=== PATIENT | female | born 1960 | race Hispanic/Latino ===

== ENCOUNTER 2019-06-16 05:57 | Inpatient (IN) | payer BC ==
[2019-06-12 10:02] LABS: BASOPHILS % (AUTO) 0.4 % (0.0-5.0); EOSINOPHILS % (AUTO) 2.5 % (0.0-8.0); LYMPHOCYTES % (AUTO) 28.2 % (21.0-51.0); MEAN CORPUSCULAR HEMOGLOBIN 26.9 pg (27.0-33.0); MEAN CORPUSCULAR HGB CONC 30.7 g/dL (32.0-36.0); MEAN CORPUSCULAR VOLUME 87.6 fL (79-99); MONOCYTES % (AUTO) 5.8 % (3.0-13.0); NEUTROPHILS % (AUTO) 62.7 % (40.0-77.0); PLATELET COUNT (AUTO) 350 K/uL (130-400); RED BLOOD CELL COUNT(AUTO) 4.68 MIL/uL (4.00-5.50); RED CELL DISTRIBUTION WIDTH 13.9 % (11.0-15.5); WHITE BLOOD COUNT (AUTO) 5.2 K/uL (4.8-10.8)
[2019-06-12 10:05] VITALS: BP 125/87
[2019-06-12 10:06] LABS: APPEARANCE,URINE Clear (CLEAR); BILIRUBIN,URINE Negative (NEGATIVE); COLOR,URINE Yellow (YELLOW); GLUCOSE, URINE (UA) Negative (NEGATIVE); KETONES,URINE Negative (NEGATIVE); LEUKOCYTE ESTERASE ,URINE Small (NEGATIVE); NITRATE,URINE Negative (NEGATIVE); OCCULT BLOOD,URINE Negative (NEGATIVE); PROTEIN,URINE Negative (NEGATIVE)
[2019-06-12 10:07] LABS: CREATININE 0.9 mg/dL (0.5-1.5); POTASSIUM 4.5 mmol/L (3.5-5.1)
[2019-06-12 10:10] LABS: INR 1.65 (0.85-1.15); PARTIAL THROMBOPLASTIN TIME 30.3 SEC (26.3-35.5)
[2019-06-12 10:30] LABS: RBC,URINE 0-1 /HPF (0-1)
[2019-06-12 10:33] LABS: BACTERIA,URINE Few /HPF (None Seen)
--- NOTE | 2019-06-15 12:19 | NUR ---
LABS PT/ INR REPORTED TO DR. BRINK, MESSAGE LEFT WITH KODAK. PENDING FURTHER ORDERS
--- NOTE | 2019-06-15 14:03 | NUR ---
LABS RECEIVED CALL BACK PER DR. BRINK NO FURTHER ORDERS ON PT/ INR LEVELS REPORTED
[~2019-06-16] VITALS: Ht 157.5 cm; Wt 78.7 kg
[2019-06-16] VITALS (16 sets, daily range): BP systolic 101–127; BP diastolic 66–89
[~2019-06-16 05:57] MED LIST: METF-444 PO; ROSU20TA31 PO; SODIUM CHLORIDE 0.9% 500ML 500 ML IV SCH; WARF-57 PO
[2019-06-16] MEDS ORDERED: SODIUM CHLORIDE 0.9% 1000ML 1,000 ML IV ONE (06:28)
[2019-06-16] MEDS ORDERED: HEPARIN SODIUM 1000UNIT/ML 10ML VIAL ONE (07:10)
[2019-06-16] MEDS ORDERED: NITROGLYCERIN 2 MG/VIAL VIAL IV ONE (07:11)
[2019-06-16] MEDS ORDERED: IOHEXOL 350 MG/ML 100ML INFUS..BTL IV ONE (07:11)
[2019-06-16] MEDS ORDERED: LIDOCAINE HCL 2% 20ML ONE (07:11)
[2019-06-16] MEDS ORDERED: NICARDIPINE HCL 25 MG/10 ML ML IV ONE (07:17)
[2019-06-16] MEDS ORDERED: FENTANYL CITRATE PF 50 MCG/1 ML 2ML VIAL ONE (07:41)
[2019-06-16] MEDS ORDERED: MIDAZOLAM HCL 1 MG/ML 2ML VIAL ONE (07:41)
--- NOTE | 2019-06-16 08:20 | NUR ---
PT CAME BACK FROM WEAVING LOOM OPERATOR TSF BY BED. TR BAND WITH 13 ML DRESSING IS CLEAN AND DRY RADIAL PULSES PRESENT BILATERALLY.
[2019-06-16] MEDS ORDERED: CEFAZOLIN SODIUM 1 GM VIAL IVP PRN (08:30)
--- NOTE | 2019-06-16 09:27 | NUR ---
DR. SINGLETARY CAME TO SPEAK TO PATIENT AND FAMILY AT BEDSIDE.
[2019-06-16 10:57] LABS: HEMATOCRIT 33.3 % (36-48); MEAN CORPUSCULAR HEMOGLOBIN 27.5 pg (27.0-33.0); MEAN CORPUSCULAR HGB CONC 32.1 g/dL (32.0-36.0); MEAN CORPUSCULAR VOLUME 85.6 fL (79-99); PLATELET COUNT (AUTO) 237 K/uL (130-400); RED BLOOD CELL COUNT(AUTO) 3.89 MIL/uL (4.00-5.50); RED CELL DISTRIBUTION WIDTH 14.6 % (11.0-15.5); WHITE BLOOD COUNT (AUTO) 4.9 K/uL (4.8-10.8)
--- NOTE | 2019-06-16 11:00 | NUR ---
TR BAND REMOVED NO COMPLICATIONS, V/S STABLE DRESSING DRY AND INTACT.
[2019-06-16 11:06] LABS: HEMOGLOBIN A1C 6.3 % (4.0-6.0)
[2019-06-16 11:09] LABS: CREATININE 0.8 mg/dL (0.5-1.5)
[2019-06-16] MEDS ORDERED: MANNITOL 25% 50ML VIAL IV ONE (11:48)
[2019-06-16] MEDS ORDERED: HEPARIN SODIUM 1000UNIT/ML 10ML VIAL IV ONE (11:48)
[2019-06-16] MEDS ORDERED: SODIUM BICARB 8.4% 50ML SYRINGE IVP ONE (11:48)
[2019-06-16] MEDS ORDERED: ALBUMIN (HUMAN) 25% 50 ML IV ONE (11:48)
[2019-06-16] MEDS ORDERED: PHENYLEPHRINE HCL 10 MG/ML 1ML VIAL IV ONE (11:48)
[2019-06-16] MEDS ORDERED: AMINOCAPROIC ACID 250 MG/ML 20 ML VIAL IV ONE (11:48)
[2019-06-16] MEDS ORDERED: CALCIUM CHLORIDE 100 MG/ML 10 ML SYG IVP ONE (11:48)
[2019-06-16] MEDS ORDERED: MAGNESIUM SULFATE 1 GM/2 ML VIAL IM ONE (11:48)
[2019-06-16 11:54] LABS: INR 1.15 (0.85-1.15)
[2019-06-16 12:08] LABS: B-TYPE NATRIURETIC PEPTIDE 360 pg/mL (0-100)
--- NOTE | 2019-06-16 14:00 | NUR ---
GAVE REPORT TO BOB GAVIN RN AT BEDSIDE.
[2019-06-16] MEDS ORDERED: ACETAMINOPHEN 325 MG TAB PO PRN ×2 (15:15→16:45)
[2019-06-16] MEDS ORDERED: POTASSIUM CHLORIDE 10% ELIXIR 20 MEQ/15 ML UDCUP PO PRN (16:45)
[2019-06-16] MEDS ORDERED: ACETAMINOPHEN-CODEINE 300/30MG TAB PO PRN (16:45)
[2019-06-16] MEDS ORDERED: LACTULOSE 20 GM/30 ML UDCUP PO PRN (16:45)
[2019-06-16] MEDS ORDERED: GLUCAGON 1MG KIT 1 MG ML IM PRN (16:45)
[2019-06-16] MEDS ORDERED: DEXTROSE 50%-WATER 50 ML DISP.SYRIN IV PRN (16:45)
[2019-06-16] MEDS ORDERED: POTASSIUM CHLORIDE 20 MEQ ERTAB PO PRN (16:45)
[2019-06-16] MEDS ORDERED: HYDRALAZINE HCL 20 MG/ML VIAL IV PRN (16:45)
[2019-06-16] MEDS ORDERED: POTASSIUM CHLORIDE 10MEQ/100ML 100 ML IV PRN (16:45)
[2019-06-16] MEDS ORDERED: LIDOCAINE HCL-MPF 1% 2ML VIAL IV PRN (16:45)
[2019-06-16] MEDS ORDERED: ONDANSETRON HCL 4 MG/2 ML VIAL IVP PRN (16:45)
--- NOTE | 2019-06-16 17:00 | NUR ---
GAVE REPORT TO DRE REYNOSO RN , NO CONCERNS VOICED
--- NOTE | 2019-06-16 17:15 | NUR ---
RECEIVED TO ROOM 201 VIA W/C ACCOMPANIED BY PAUL RN. PT. AAOX3, RESP.'S EVEN AND UNLABORED. DENIES ANY C/O SOB, DENIES ANY CURRENT PAIN. RIGHT WRIST WITH LIGHT DRSG IN PLACE, D/I; DENIES ANY C/O NUMBNESS OR TINGLING TO DIGITS, GOOD CMS. ORIENTED TO ROOM AND SURROUNDINGS. CALL LIGHT WITHIN REACH.
[2019-06-16] MEDS: FAMOTIDINE/PF 20 MG/2 ML VIAL IV SCH (20:18)
[2019-06-16] MEDS: INSULIN HUMULIN R 100 UNIT/ML 3ML SQ SCH (21:00)
[2019-06-17] VITALS (20 sets, daily range): BP systolic 80–128; BP diastolic 46–88
[2019-06-17 03:54] LABS: HEMATOCRIT 34.6 % (36-48); MEAN CORPUSCULAR HEMOGLOBIN 27.1 pg (27.0-33.0); MEAN CORPUSCULAR HGB CONC 32.1 g/dL (32.0-36.0); MEAN CORPUSCULAR VOLUME 84.6 fL (79-99); PLATELET COUNT (AUTO) 224 K/uL (130-400); RED BLOOD CELL COUNT(AUTO) 4.09 MIL/uL (4.00-5.50); RED CELL DISTRIBUTION WIDTH 14.4 % (11.0-15.5); WHITE BLOOD COUNT (AUTO) 3.6 K/uL (4.8-10.8)
[2019-06-17 04:06] LABS: CREATININE 0.8 mg/dL (0.5-1.5); MAGNESIUM 1.8 mg/dL (1.80-2.40); PHOSPHORUS 3.6 mg/dL (2.5-4.9)
[2019-06-17] MEDS: INSULIN HUMULIN R 100 UNIT/ML 3ML SQ SCH ×2 (05:21→11:30)
[2019-06-17] MEDS: FAMOTIDINE/PF 20 MG/2 ML VIAL IV SCH ×2 (09:45→21:00)
[2019-06-17] MEDS ORDERED: NOREPINEPHRINE BITARTRATE 8 MG in DEXTROSE 5%-WATER 250 ML IV PRN (10:00)
[2019-06-17] MEDS ORDERED: AMINOCAPROIC ACID 15,000 MG in SODIUM CHLORIDE 0.9% 500ML 500 ML IV PRN (10:00)
[2019-06-17] MEDS ORDERED: EPINEPHRINE 10 MG in SODIUM CHLORIDE 0.9% 250 ML IV PRN (10:00)
[2019-06-17] MEDS ORDERED: ROPIVACAINE 0.2% 2MG/ML 100ML VIAL IJ ONE (13:48)
[2019-06-17] MEDS ORDERED: SODIUM CHLORIDE 0.9% 1000ML 1,000 ML IV ONE (14:04)
--- NOTE | 2019-06-17 14:14 | NUR ---
DC PLAN VISITED WITH PATIENT. PATIENT LIVES ALONE. INDEPENDENT ABLE TO PERFORM ADL'S. PATIENT HAS NO SERVICES OR DME'S. FEELS SAFE TO RETURN HOME. Addendum: 06/17/19 at 1416 by GILMAR JOSHI RN CM Amended: Links added.
[2019-06-17] MEDS ORDERED: OCTYL 2-CYANOACRYLATE 1 EACH TP ONE (14:33)
[2019-06-17] MEDS ORDERED: NITROGLYCERIN 50 MG/D5% WATER 1 BOT ONE (14:33)
[2019-06-17] MEDS ORDERED: CEFAZOLIN SODIUM 1 GM VIAL ONE (14:33)
[2019-06-17] MEDS: IPRATROPIUM/ALBUTEROL SULFATE 3 ML SOLUTION IH PRN (15:19)
[2019-06-17] MEDS ORDERED: NOREPINEPHRINE BITARTRATE 1 MG/1 ML ML IV ONE (15:57)
[2019-06-17] MEDS ORDERED: AMINOCAPROIC ACID 250 MG/ML 20 ML VIAL IV ONE (15:57)
[2019-06-17] MEDS ORDERED: ESMOLOL HCL 10 MG/ML 10 ML VIAL ONE ×2 (15:57→19:14)
[2019-06-17] MEDS ORDERED: MIDAZOLAM HCL 1 MG/ML 2ML VIAL ONE (15:57)
[2019-06-17] MEDS ORDERED: PROPOFOL 10 MG/ML 20ML VIAL IV ONE (15:57)
[2019-06-17] MEDS ORDERED: PROTAMINE SULFATE 10 MG/ML 25ML VIAL IV ONE (15:57)
[2019-06-17] MEDS ORDERED: SODIUM BICARB 50MEQ 50ML VIAL ONE (15:57)
[2019-06-17] MEDS ORDERED: LIDOCAINE PF 2% 5ML ABBOJECT ONE (15:57)
[2019-06-17] MEDS ORDERED: HEPARIN SODIUM 1000UNIT/ML 10ML VIAL ONE (15:57)
[2019-06-17] MEDS ORDERED: EPINEPHRINE 1 MG/ML AMPULE ONE (15:57)
[2019-06-17] MEDS ORDERED: ROCURONIUM 10MG/1ML SYR 10 MG/ML ML ONE (15:58)
[2019-06-17] MEDS ORDERED: SUFENTANIL CITRATE 50 MCG/ML 1ML AMP ONE ×2 (15:59→19:15)
[2019-06-17] MEDS ORDERED: KETAMINE 50MG/ML SYRINGE 50 MG/ML DISP.SYRIN IV ONE (16:00)
[2019-06-17] MEDS ORDERED: DELNIDO FORMULA 1 BAG IV ONE (16:12)
[2019-06-17 16:45] LABS: ABG HCO3 18.6 mmol/L (21.0-28.0); ABG OXYGEN SATURATION 99.3 % (95.0-99.0); ABG PCO2 33 mmHg (32-45)
[2019-06-17] MEDS ORDERED: ROPIVACAINE 0.5% 5MG/ML 30ML IJ ONE (17:17)
[2019-06-17] MEDS ORDERED: AMIODARONE HCL 50 MG/ML 3 ML VIAL ONE (17:42)
[2019-06-17] MEDS ORDERED: VASOPRESSIN 20 UNITS/ML 1ML VIAL ONE (17:47)
[2019-06-17] MEDS ORDERED: SODIUM CHLORIDE 0.9% 500ML 500 ML IV SCH (17:56)
[2019-06-17] MEDS ORDERED: AMINOCAPROIC ACID 15,000 MG in SODIUM CHLORIDE 0.9% 250 ML IV SCH (18:00)
[2019-06-17] MEDS ORDERED: NITROGLYCERIN 50 MG/D5% WATER 250 BOT IV SCH (18:00)
[2019-06-17] MEDS ORDERED: ACETAMINOPHEN 325 MG TAB PO PRN (18:00)
[2019-06-17] MEDS ORDERED: NOREPINEPHRINE 4MG/NS 250ML 250 ML IV PRN (18:00)
[2019-06-17] MEDS ORDERED: SODIUM CHLORIDE 0.9% 250 ML IV PRN (18:00)
[2019-06-17] MEDS ORDERED: ACETAMINOPHEN 650 MG SUPPOSITORY RC PRN (18:00)
[2019-06-17] MEDS ORDERED: MORPHINE SULFATE 4 MG/1ML SYG IV PRN (18:00)
[2019-06-17] MEDS ORDERED: SODIUM CHLORIDE 0.9% 1000ML 1,000 ML IV SCH (18:00)
[2019-06-17] MEDS ORDERED: GLUCAGON 1MG KIT 1 MG ML IM PRN (18:00)
[2019-06-17] MEDS ORDERED: DEXTROSE 50%-WATER 50 ML DISP.SYRIN IV PRN (18:00)
[2019-06-17] MEDS ORDERED: SODIUM CHLORIDE 0.9% 10 ML VIAL IVP PRN (18:00)
[2019-06-17] MEDS ORDERED: MORPHINE SULFATE 2 MG/ML 1ML SYG IV PRN (18:00)
[2019-06-17] MEDS ORDERED: PROPOFOL 1000 MG/100 ML 100 ML IV PRN (18:00)
[2019-06-17] MEDS ORDERED: EPINEPHRINE 10 MG in DEXTROSE 5%-WATER 250 ML IV PRN (18:00)
[2019-06-17] MEDS ORDERED: POTASSIUM PHOS 15 mMOL+NS250ML 250 ML IV PRN (18:00)
[2019-06-17] MEDS ORDERED: TRAMADOL HCL 50 MG TABLET PO PRN (18:00)
[2019-06-17 18:08] LABS: ABG BASE EXCESS -3.4 mmol/L (-2.0-3.0); ABG HCO3 20.2 mmol/L (21.0-28.0); ABG OXYGEN SATURATION 98.5 % (95.0-99.0); ABG PCO2 29 mmHg (32-45)
[2019-06-17 18:33] LABS: ABG BASE EXCESS -5.3 mmol/L (-2.0-3.0); ABG HCO3 17.8 mmol/L (21.0-28.0); ABG OXYGEN SATURATION 98.8 % (95.0-99.0); ABG PCO2 26 mmHg (32-45)
[2019-06-17] MEDS ORDERED: MILRINONE-D5W 20 MG/100 ML 100 ML IV ONE (18:38)
[2019-06-17] MEDS ORDERED: PROTAMINE SULFATE 10 MG/ML 5 ML VIAL ONE (18:48)
[2019-06-17 18:50] LABS: ABG BASE EXCESS 1.2 mmol/L (-2.0-3.0); ABG HCO3 23.7 mmol/L (21.0-28.0); ABG OXYGEN SATURATION 98.8 % (95.0-99.0); ABG PCO2 29 mmHg (32-45)
[2019-06-17] MEDS ORDERED: FAMOTIDINE/PF 20 MG/2 ML VIAL IV ONE (19:14)
[2019-06-17] MEDS ORDERED: Q-PUMP 1 EACH IRRIG SCH (19:15)
[2019-06-17 19:28] LABS: ABG BASE EXCESS -4.8 mmol/L (-2.0-3.0); ABG HCO3 20.8 mmol/L (21.0-28.0); ABG OXYGEN SATURATION 98.2 % (95.0-99.0); ABG PCO2 40 mmHg (32-45)
--- NOTE | 2019-06-17 20:00 | NUR ---
CVR PT RECEIVED FROM OR AT THIS TIME. PT SEDATED PLACED ON MECHANICAL VENTILATION VIA ET TUBE 7.0 TAPPED AT APPROXIMATELY 21CM LIP VENT SETTINGS SIMV RATE 12, VT 500, PEEP 5, PS 10 FIO2 60%. CLEAR BREATH SOUNDS AUSCULTATED TO LEFT LUNG BERUMEN AND CRACKLES TO LEFT LUNG BERUMEN. OG TUBE NOTED PLACEMENT ASSESSED AND CONFIRMED WITH AIR BOLUS THEN PLACED ON LIWS DRAINAGE CLEAR IN COLOR. RIJ CORDIS INFUSING WELL. RIGHT CHEST INCISION DRESSING DRY AND INTACT. CHEST TUBE X 1 PLACED TO [id number] SUCTION DRAINAGE SANGUINEOUS IN COLOR. PACING WIRES X 2 NOTED. Q PUMP STARTED AT 10ML/HR. BERNSTEIN TO GRAVITY DRAINING PALE YELLOW URINE. IV MEDICATIONS LEVOPHED AT 6MCG/MIN, EPI AT 0.08 MCG/KG/MIN, MILRINONE AT 0.2 MCG/KG/MIN, NS AT 10 ML/HR AND INSULIN STARTED AT 2 UNITS/HR. BP HR 100'S SINUS TACHYCARDIA ASBP 90'S. SEE ASSESSMENT.
[2019-06-17] MEDS: INSULIN REGULAR, HUMAN 3ML 100 UNIT in SODIUM CHLORIDE 0.9% 99 ML IV SCH ×2 (20:12)
[2019-06-17 20:15] LABS: HEMATOCRIT 31.5 % (36-48); MEAN CORPUSCULAR HEMOGLOBIN 27.7 pg (27.0-33.0); MEAN CORPUSCULAR HGB CONC 31.7 g/dL (32.0-36.0); MEAN CORPUSCULAR VOLUME 87.3 fL (79-99); PLATELET COUNT (AUTO) 151 K/uL (130-400); RED BLOOD CELL COUNT(AUTO) 3.61 MIL/uL (4.00-5.50); RED CELL DISTRIBUTION WIDTH 14.3 % (11.0-15.5); WHITE BLOOD COUNT (AUTO) 16.3 K/uL (4.8-10.8)
[2019-06-17] MEDS: ALBUMIN (HUMAN) 5% 250 ML IV PRN ×2 (20:19→20:30)
[2019-06-17 20:24] LABS: ABG BASE EXCESS -9.5 mmol/L (-2.0-3.0); ABG HCO3 17.2 mmol/L (21.0-28.0); ABG OXYGEN SATURATION 91.9 % (95.0-99.0); ABG PCO2 41 mmHg (32-45)
[2019-06-17] MEDS: SODIUM BICARB 50MEQ 50ML VIAL IV PRN ×4 (20:30→21:58)
[2019-06-17 20:35] LABS: CREATININE 1.2 mg/dL (0.5-1.5); MAGNESIUM 3.1 mg/dL (1.80-2.40); PHOSPHORUS 5.7 mg/dL (2.5-4.9); POTASSIUM 3.4 mmol/L (3.5-5.1)
[2019-06-17 20:36] LABS: INR 1.42 (0.85-1.15); PROTHROMBIN TIME 14.7 SEC (9.6-11.6)
[2019-06-17] MEDS: POTASSIUM CHLORIDE 20MEQ/100ML 100 ML IV PRN ×5 (20:36→23:23)
[2019-06-17 20:41] LABS: PARTIAL THROMBOPLASTIN TIME > 120.0 SEC (26.3-35.5)
[2019-06-17] MEDS ORDERED: PHARMACY COMMUNICATION MISC SCH (20:45)
[2019-06-17 21:04] LABS: ABG BASE EXCESS -2.6 mmol/L (-2.0-3.0); ABG HCO3 23.4 mmol/L (21.0-28.0); ABG OXYGEN SATURATION 91.7 % (95.0-99.0); ABG PCO2 45 mmHg (32-45)
--- NOTE | 2019-06-17 21:30 | NUR ---
DR. GEMINI SINGLETARY CALLED WITH CRITICAL COAGULATION STUDIES AND GIVEN UPDATE ON PT STATUS. NEW ORDERS RECEIVED AND WILL BE CARRIED OUT.
[2019-06-17] MEDS ORDERED: PROTAMINE SULFATE 10 MG/ML 5 ML VIAL IVP SCH (21:45)
[2019-06-17 21:56] LABS: ABG BASE EXCESS -0.6 mmol/L (-2.0-3.0); ABG OXYGEN SATURATION 92.9 % (95.0-99.0); ABG PCO2 39 mmHg (32-45)
[2019-06-17] MEDS: CALCIUM GLUCONATE 1 GM in SODIUM CHLORIDE 0.9% 50 ML IV PRN ×2 (22:03→23:01)
[2019-06-17] MEDS: CEFAZOLIN SODIUM 1 GM VIAL IV SCH (22:50)
[2019-06-17 22:59] LABS: ABG BASE EXCESS 0.6 mmol/L (-2.0-3.0); ABG HCO3 25.1 mmol/L (21.0-28.0); ABG OXYGEN SATURATION 96.5 % (95.0-99.0); ABG PCO2 40 mmHg (32-45)
[2019-06-17] MEDS ORDERED: CALCIUM GLUCONATE 1 GM/10 ML VIAL IV ONE (23:00)
[2019-06-17] MEDS ORDERED: ALBUMIN (HUMAN) 5% 250 ML IV ONE (23:17)
[2019-06-17 23:46] LABS: INR 1.42 (0.85-1.15); PARTIAL THROMBOPLASTIN TIME 26.1 SEC (26.3-35.5); PROTHROMBIN TIME 14.7 SEC (9.6-11.6)
--- NOTE | 2019-06-17 23:57 | NUR ---
RUNS OF AFIB DR. SINGLETARY MADE AWARE OF SHORT RUNS OF AFIB WITH RVR AT THIS TIME. NEW ORDERS RECEIVED AND WILL BE CARRIED OUT.
[2019-06-17 23:58] LABS: ABG BASE EXCESS 1.2 mmol/L (-2.0-3.0); ABG HCO3 25.9 mmol/L (21.0-28.0); ABG OXYGEN SATURATION 97.8 % (95.0-99.0); ABG PCO2 42 mmHg (32-45)
[2019-06-18] VITALS (29 sets, daily range): BP systolic 86–132; BP diastolic 44–80
[2019-06-18] MEDS ORDERED: AMIODARONE HCL 360 MG in DEXTROSE 5%-WATER 200 ML IV SCH ×2
[2019-06-18] MEDS ORDERED: AMIODARONE HCL 150 MG in DEXTROSE 5%-WATER 100 ML IV SCH ×2
[2019-06-18] MEDS ORDERED: DIGOXIN 250 MCG/ML 2ML AMP IV SCH
[2019-06-18] MEDS ORDERED: AMIODARONE HCL 900MG/18ML IV ONE (00:04)
[2019-06-18] MEDS ORDERED: DIGOXIN 250 MCG/ML 2ML AMP ONE (00:04)
[2019-06-18] MEDS ORDERED: AMIODARONE HCL 50 MG/ML 3 ML VIAL ONE (00:05)
[2019-06-18] MEDS ORDERED: CALCIUM GLUCONATE 1 GM/10 ML VIAL IV ONE ×3 (00:22→03:43)
[2019-06-18] MEDS: CALCIUM GLUCONATE 1 GM in SODIUM CHLORIDE 0.9% 50 ML IV PRN ×3 (00:24→03:45)
[2019-06-18] MEDS: POTASSIUM CHLORIDE 20MEQ/100ML 100 ML IV PRN ×8 (00:25→08:56)
[2019-06-18 01:01] LABS: ABG BASE EXCESS -1.5 mmol/L (-2.0-3.0); ABG HCO3 23.2 mmol/L (21.0-28.0); ABG OXYGEN SATURATION 97.1 % (95.0-99.0); ABG PCO2 39 mmHg (32-45)
[2019-06-18] MEDS: SODIUM BICARB 50MEQ 50ML VIAL IV PRN ×2 (01:03→01:08)
[2019-06-18 02:06] LABS: ABG BASE EXCESS 3.1 mmol/L (-2.0-3.0); ABG HCO3 27.7 mmol/L (21.0-28.0); ABG OXYGEN SATURATION 96.7 % (95.0-99.0); ABG PCO2 42 mmHg (32-45)
[2019-06-18 03:39] LABS: ABG BASE EXCESS 1.6 mmol/L (-2.0-3.0); ABG HCO3 25.6 mmol/L (21.0-28.0); ABG OXYGEN SATURATION 97.5 % (95.0-99.0); ABG PCO2 38 mmHg (32-45)
[2019-06-18] MEDS: IPRATROPIUM/ALBUTEROL SULFATE 3 ML SOLUTION IH PRN (03:45)
--- NOTE | 2019-06-18 04:20 | NUR ---
EXTUBATION PT TOLERATED WEANING WELL ABG WITHIN PARAMETERS. 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 PT WAS ABLE TO ACHIEVE NIF -37 AND VC 977 ML. PT EXTUBATED AND PLACED ON 40% CAFM AND WAS ENCOURAGED TO TAKE SLOW DEEP BREATHS. WILL CONTINUE TO MONITOR. ALMOST IMMEDIATELY POST EXTUBATED PT HAD MODERATE GREEN EMESIS PRN ZOFRAN GIVEN.
[2019-06-18] MEDS: ONDANSETRON HCL 4 MG/2 ML VIAL IV PRN ×3 (04:26→17:38)
[2019-06-18 04:53] LABS: HEMATOCRIT 28.2 % (36-48); MEAN CORPUSCULAR HGB CONC 33.3 g/dL (32.0-36.0); MEAN CORPUSCULAR VOLUME 83.9 fL (79-99); PLATELET COUNT (AUTO) 144 K/uL (130-400); RED BLOOD CELL COUNT(AUTO) 3.36 MIL/uL (4.00-5.50); RED CELL DISTRIBUTION WIDTH 14.5 % (11.0-15.5); WHITE BLOOD COUNT (AUTO) 16.5 K/uL (4.8-10.8)
[2019-06-18 05:32] LABS: ABG BASE EXCESS 2.8 mmol/L (-2.0-3.0); ABG HCO3 27.9 mmol/L (21.0-28.0); ABG OXYGEN SATURATION 93.7 % (95.0-99.0); ABG PCO2 45 mmHg (32-45)
[2019-06-18 05:42] LABS: INR 1.41 (0.85-1.15); PROTHROMBIN TIME 14.6 SEC (9.6-11.6)
[2019-06-18] MEDS: INSULIN REGULAR, HUMAN 3ML 100 UNIT in SODIUM CHLORIDE 0.9% 99 ML IV SCH ×2 (06:26)
[2019-06-18] MEDS ORDERED: PHARMACY COMMUNICATION MISC SCH ×2 (06:30→20:15)
[2019-06-18] MEDS: CEFAZOLIN SODIUM 1 GM VIAL IV SCH ×2 (06:32→14:44)
[2019-06-18 06:37] LABS: CARBON DIOXIDE 30 mmol/L (21-32); CHLORIDE 115 mmol/L (101-111); CREATININE 1.3 mg/dL (0.5-1.5); GLOMERULAR FILTR. RATE CALC 45 mL/min (>60); GLUCOSE,RANDOM 253 mg/dL (70-105); SODIUM SERUM 155 mmol/L (136-145); UREA NITROGEN, BLOOD 13 mg/dL (7-18)
[2019-06-18 06:53] LABS: PHOSPHORUS < 0.5 mg/dL (2.5-4.9)
[2019-06-18] MEDS: MAGNESIUM 2GM PREMIX 50ML 50 ML IV PRN (08:06)
[2019-06-18] MEDS: FAMOTIDINE/PF 20 MG/2 ML VIAL IV SCH ×2 (08:47→20:31)
[2019-06-18] MEDS: ASPIRIN 81 MG EC TAB PO SCH (08:50)
[2019-06-18] MEDS: FUROSEMIDE 10 MG/ML 2ML VIAL IV SCH ×2 (08:50→20:31)
[2019-06-18] MEDS: MILRINONE-D5W 20 MG/100 ML 100 ML IV SCH (09:45)
[2019-06-18] MEDS: TRAMADOL HCL 50 MG TABLET PO PRN (11:34)
[2019-06-18] MEDS: ALBUMIN (HUMAN) 5% 250 ML IV PRN ×2 (15:08→23:11)
[2019-06-18] MEDS: ACETAMINOPHEN 325 MG TAB PO PRN (20:35)
[2019-06-18] MEDS: AMIODARONE HCL 450 MG in DEXTROSE 5%-WATER 250 ML IV SCH (20:39)
[2019-06-18 20:43] LABS: PHOSPHORUS 4.5 mg/dL (2.5-4.9); POTASSIUM 4.4 mmol/L (3.5-5.1)
[2019-06-19] VITALS (27 sets, daily range): BP systolic 84–144; BP diastolic 50–97
[2019-06-19] MEDS: ACETAMINOPHEN 325 MG TAB PO PRN ×3 (02:28→16:22)
[2019-06-19] MEDS: IPRATROPIUM/ALBUTEROL SULFATE 3 ML SOLUTION IH PRN ×2 (02:38→06:16)
[2019-06-19] MEDS: MILRINONE-D5W 20 MG/100 ML 100 ML IV SCH (02:41)
[2019-06-19] MEDS: TRAMADOL HCL 50 MG TABLET PO PRN (03:58)
[2019-06-19 04:46] LABS: HEMATOCRIT 23.4 % (36-48); MEAN CORPUSCULAR HGB CONC 32.5 g/dL (32.0-36.0); MEAN CORPUSCULAR VOLUME 86.3 fL (79-99); PLATELET COUNT (AUTO) 131 K/uL (130-400); RED BLOOD CELL COUNT(AUTO) 2.71 MIL/uL (4.00-5.50); RED CELL DISTRIBUTION WIDTH 15.5 % (11.0-15.5); WHITE BLOOD COUNT (AUTO) 20.8 K/uL (4.8-10.8)
[2019-06-19 04:47] LABS: NUCLEATED RED BLOOD CELLS 0.1 % (0.0-0.19)
[2019-06-19 04:58] LABS: POTASSIUM 4.5 mmol/L (3.5-5.1)
[2019-06-19] MEDS: METOPROLOL TARTRATE 25 MG TAB PO SCH ×2 (09:00→21:00)
[2019-06-19] MEDS: FUROSEMIDE 20 MG TABLET PO SCH ×2 (09:10→17:58)
[2019-06-19] MEDS: ASPIRIN 81 MG EC TAB PO SCH (09:10)
[2019-06-19] MEDS: FAMOTIDINE/PF 20 MG/2 ML VIAL IV SCH ×2 (09:12→22:25)
[2019-06-19 13:28] LABS: MAGNESIUM 1.7 mg/dL (1.80-2.40); POTASSIUM 4.6 mmol/L (3.5-5.1)
[2019-06-19] MEDS: MAGNESIUM 2GM PREMIX 50ML 50 ML IV PRN (13:39)
--- NOTE | 2019-06-19 16:45 | NUR ---
RECEIVED PATIENT VIA CARDIAC CHAIR FROM CVR ROOM 213. RECEIVED REPORT FROM JOJO QUARLES. CURRENTLY RECEIVING FIRST UNIT OF PRBC'S. DENIES PAIN. ASSOCIATE MATERIAL HANDLER READING SR HR 89. CALL LIGHT WITHIN REACH. FAMILY AT BEDSIDE.
[2019-06-19] MEDS: AMIODARONE HCL 450 MG in DEXTROSE 5%-WATER 250 ML IV SCH (19:47)
[2019-06-20] VITALS (40 sets, daily range): BP systolic 90–134; BP diastolic 43–84
[2019-06-20] MEDS: ACETAMINOPHEN 325 MG TAB PO PRN (03:11)
[2019-06-20 05:48] LABS: HEMATOCRIT 33.7 % (36-48); MEAN CORPUSCULAR HGB CONC 33.5 g/dL (32.0-36.0); MEAN CORPUSCULAR VOLUME 83.6 fL (79-99); NUCLEATED RED BLOOD CELLS 0.5 % (0.0-0.19); PLATELET COUNT (AUTO) 117 K/uL (130-400); RED BLOOD CELL COUNT(AUTO) 4.03 MIL/uL (4.00-5.50); RED CELL DISTRIBUTION WIDTH 15.3 % (11.0-15.5); WHITE BLOOD COUNT (AUTO) 20.3 K/uL (4.8-10.8)
[2019-06-20 06:00] LABS: CREATININE 0.9 mg/dL (0.5-1.5); POTASSIUM 4.8 mmol/L (3.5-5.1)
[2019-06-20] MEDS: IPRATROPIUM/ALBUTEROL SULFATE 3 ML SOLUTION IH PRN ×3 (06:46→18:27)
[2019-06-20] MEDS: METOPROLOL TARTRATE 25 MG TAB PO SCH ×2 (09:00→21:00)
[2019-06-20] MEDS: ENOXAPARIN SODIUM 30 MG/0.3 ML SQ SCH (09:00)
[2019-06-20] MEDS: FAMOTIDINE/PF 20 MG/2 ML VIAL IV SCH ×2 (09:15→21:46)
[2019-06-20] MEDS: FUROSEMIDE 20 MG TABLET PO SCH ×2 (09:15→17:00)
[2019-06-20] MEDS: ASPIRIN 81 MG EC TAB PO SCH (09:15)
[2019-06-20] MEDS: AMIODARONE HCL 450 MG in DEXTROSE 5%-WATER 250 ML IV SCH (12:50)
--- NOTE | 2019-06-20 15:50 | NUR ---
notification to [facility] notified Lisa MOREJON of patient left hand being discolored, cold, and blue. Orders received and entered into system. Addendum: 06/20/19 at 1604 by JOSELITO FOSTER RN incorrect patient note
[2019-06-21 03:23] VITALS: BP 107/75
[2019-06-21 04:24] LABS: HEMATOCRIT 38.2 % (36-48); MEAN CORPUSCULAR HEMOGLOBIN 28.2 pg (27.0-33.0); MEAN CORPUSCULAR HGB CONC 33.8 g/dL (32.0-36.0); MEAN CORPUSCULAR VOLUME 83.4 fL (79-99); NUCLEATED RED BLOOD CELLS 1.2 % (0.0-0.19); PLATELET COUNT (AUTO) 158 K/uL (130-400); RED BLOOD CELL COUNT(AUTO) 4.58 MIL/uL (4.00-5.50); RED CELL DISTRIBUTION WIDTH 14.9 % (11.0-15.5); WHITE BLOOD COUNT (AUTO) 18.7 K/uL (4.8-10.8)
[2019-06-21 04:34] LABS: CREATININE 1.1 mg/dL (0.5-1.5); POTASSIUM 5.1 mmol/L (3.5-5.1)
[2019-06-21] MEDS: IPRATROPIUM/ALBUTEROL SULFATE 3 ML SOLUTION IH PRN ×2 (06:56→16:07)
[2019-06-21 07:26] VITALS: BP 109/63
[2019-06-21] MEDS: ASPIRIN 81 MG EC TAB PO SCH (08:54)
[2019-06-21] MEDS: METOPROLOL TARTRATE 25 MG TAB PO SCH (08:54)
[2019-06-21] MEDS: FAMOTIDINE/PF 20 MG/2 ML VIAL IV SCH (08:55)
[2019-06-21] MEDS: ENOXAPARIN SODIUM 30 MG/0.3 ML SQ SCH (08:56)
[2019-06-21] MEDS: FUROSEMIDE 20 MG TABLET PO SCH (08:56)
[2019-06-21] MEDS: SODIUM CHLORIDE 1,000 MG TAB PO SCH ×3 (09:15→14:00)
[2019-06-21] MEDS ORDERED: SODIUM CHLORIDE 0.9% 1000ML 1,000 ML IV SCH (10:30)
--- NOTE | 2019-06-21 10:57 | NUR ---
Refusing Medications patient refusing medications. education was given on need of medication, and what each medication is for. Patient continues to refuse medication and States just wanted to leave. Notified FIELD SALES ASSOCIATE for Dr. Green of current labs and patient refusing meds and wanting to leave.
[2019-06-21 11:20] VITALS: BP 102/62
[2019-06-21] MEDS ORDERED: METO25 PO (14:44)
[2019-06-21] MEDS ORDERED: SODI100037 PO (14:44)
--- NOTE | 2019-06-21 16:40 | NUR ---
Discharge Overall discharge instructions were given to patient and daughter, which included medication/new medications/ follow ups/ and following discharge instructions. Patient and daughter understood teaching. IV was removed and leads were removed. Patient was than wheeled down to daughters private vehicle without any changes in her status.
== END 2019-06-21 17:00 | disposition home or self-care (01) | DRG 217 ==
LOC: DAH 05:57 → 2AH 05:58 → DAH 05:58 → 2CV 06-17 14:58 → 2CH 06-19 17:06
PROVIDERS: ADMIT Internal Medicine; ATTEND Internal Medicine
PROC: 4A023N7 Measurement of Cardiac Sampling and Pressure, Left Heart, Percutaneous Approach (ICD-10-PCS; principal; 2019-06-16)
PROC: B2111ZZ Fluoroscopy of Multiple Coronary Arteries using Low Osmolar Contrast (ICD-10-PCS; 2019-06-16)
PROC: 30233N1 Transfusion of Nonautologous Red Blood Cells into Peripheral Vein, Percutaneous Approach (ICD-10-PCS; 2019-06-17)
PROC: 02RG08Z Replacement of Mitral Valve with Zooplastic Tissue, Open Approach (ICD-10-PCS; 2019-06-17 16:00)
DX: I05.2 Rheumatic mitral stenosis with insufficiency (principal); I48.19 Other persistent atrial fibrillation; I48.92 Unspecified atrial flutter; D62 Acute posthemorrhagic anemia; E87.1 Hypo-osmolality and hyponatremia; I38 Endocarditis, valve unspecified; I69.354 Hemiplegia and hemiparesis following cerebral infarction affecting left non-dominant side; R06.09 Other forms of dyspnea; E11.9 Type 2 diabetes mellitus without complications; E78.5 Hyperlipidemia, unspecified; E87.70 Fluid overload, unspecified; F17.200 Nicotine dependence, unspecified, uncomplicated; I27.20 Pulmonary hypertension, unspecified; Z79.01 Long term (current) use of anticoagulants; Z79.84 Long term (current) use of oral hypoglycemic drugs; Z79.899 Other long term (current) drug therapy
CPT/HCPCS: 36415; 36430; 71045; 76998; 80048; 80061; 81001; 82330; 82435; 82803; 82947; 82948; 83036; 83605; 83735; 83880; 84100; 84132; 84295; 85018; 85025; 85027; 85384; 85610; 85730; 86850; 86900; 86901; 86922; 88304; 88305; 93005; 93318; 93458; 93880; 94002; 94003; 94010; 94150; 94640; 94664; 97039; 99156; 99157; A4357; A4606; A7048; C1769; C1892; G0378; J0171; J0282; J0610; J0690; J1160; J1644; J1650; J1815; J1940; J2001; J2150; J2250; J2260; J2370; J2405; J2704; J2720; J2795; J3010; J3475; J3480; J3490; J7030; J7040; J7060; P9016; P9045; P9047; Q9967